=== PATIENT | male | born 1990 | race Two or more races ===

== ENCOUNTER 2017-07-25 18:05 | Emergency (ER) | payer SELFPAY ==
[~2017-07-25] VITALS: Ht 172.7 cm; Wt 59.0 kg
[2017-07-25 19:15] VITALS: BP 130/76
[2017-07-25] MEDS ORDERED: TYLENOL325 MG ORAL (19:31)
[2017-07-25] MEDS ORDERED: ZITHROMAX250 MG ORAL (19:31)
[2017-07-25 19:45] VITALS: BP 125/74
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
--- NOTE | 2017-07-26 11:35 | Diagnostic Imaging Report ---
Indication: Chest pain Comparison: None A single view chest radiograph was obtained. Findings: Reticulonodular interstitial densities are demonstrated within the lungs bilaterally, nonspecific in nature. Findings could be due to an interstitial pneumonitis or chronic basis. Please correlate clinically. Followup is recommended. Heart size is normal. Hilar mediastinal contours and bones appear unremarkable. Impression: Interstitial opacities within the lungs. Pneumonitis is a consideration. Followup and clinical correlation recommended
--- NOTE | 2017-07-26 11:38 | Diagnostic Imaging Report ---
Indication: Chest trauma. Pain.. Comparison: None Findings: 4 views of the left chest wall was obtained for evaluation of the ribs. There is acute fracture of the left 10th rib. There is no pneumothorax. There is slight blunting of the left costophrenic angle. Interstitial opacities are present within the left lung. Should consider possibility of pulmonary contusion. Impression: Acute left 10th rib fracture. Trace left pleural effusion. Abnormal ill-defined density in the left lung. Consider lung contusion among other possibilities
== END 2017-07-25 19:45 | disposition home or self-care (01) ==
LOC: EDBD 18:05 → EMR 19:35
DX: S20.212A Contusion of left front wall of thorax, initial encounter (principal); J18.9 Pneumonia, unspecified organism; Y09 Assault by unspecified means; X58.XXXA Exposure to other specified factors, initial encounter; Y93.9 Activity, unspecified; Y92.9 Unspecified place or not applicable; S22.32XA Fracture of one rib, left side, initial encounter for closed fracture; J90 Pleural effusion, not elsewhere classified
CPT/HCPCS: 71010; 99284